=== PATIENT | female | born 2000 | race African-American/Black ===

== ENCOUNTER 2023-09-08 11:03 | Emergency (ER) | payer OTHER ==
[~2023-09-08] VITALS: Ht 162.6 cm; Wt 58.0 kg
[2023-09-08 11:05] VITALS: O2SAT 99
[2023-09-08 11:50] VITALS: BP 101/71
[2023-09-08] MEDS ORDERED: BACITRACIN ZINC OINT UDPKT TOP ONE (12:00)
[2023-09-08 12:45] VITALS: PULSE 90; RESP 12; TEMP 98
== END 2023-09-08 12:46 ==
LOC: EDBD 11:03 → ER 11:03
DX: S60.511A Abrasion of right hand, initial encounter (principal); S90.811A Abrasion, right foot, initial encounter; W25.XXXA Contact with sharp glass, initial encounter; Y93.89 Activity, other specified; Y92.89 Other specified places as the place of occurrence of the external cause; Y99.8 Other external cause status
CPT/HCPCS: 99283